=== PATIENT | male | born 1975 | race African-American/Black ===

== ENCOUNTER 2019-07-01 22:43 | Emergency (ER) | payer SELFPAY ==
[~2019-07-01] VITALS: Ht 170.2 cm; Wt 91.0 kg
[2019-07-01 22:43] VITALS: BP 124/81
--- NOTE | 2019-07-01 23:04 | PHYS DOC ---
Adult General Chief Complaint Chief Complaint: ANXIETY/PANIC ATTACK HPI HPI Patient is a 44-year-old -[place] male with history of anxiety currently off his Zoloft and residing at the [facility] who presents with feelings of dizziness described his head spinning and increased anxiety since running out of his Zoloft 2 days ago. Patient does report difficulty sleeping. States he attempted to get ahold of his medication provider 2 days ago but was unable to take contacted have prescriptions refilled. No chest pain palpitations, HI or SI reported. No other acute symptoms or complaints. [] Review of Systems Review of Systems Review symptoms as per history of present illness. All other systems were reviewed and found to be within normal limits, except as documented in this note. Allergies Allergies Allergies Coded Allergies Type Severity Reaction Last Updated Verified No Known Drug Allergies 07/01/19 No Physical Exam Physical Exam Constitutional: Well developed, well nourished, no acute distress, non-toxic appearance. [] HENT: Normocephalic, atraumatic, bilateral external ears normal, oropharynx moist, nose normal. [] Eyes: PERRLA, EOMI, conjunctiv injected e. [] Cardiovascular:Heart rate regular rhythm, no murmur [] Lungs & Thorax: Bilateral breath sounds clear to auscultation []] Neurologic: Alert and oriented, normal motor function, normal sensory function, no focal deficits noted. [] Psychologic: Affect anxious EKG EKG [] Radiology/Procedures Radiology/Procedures [] Course & Med Decision Making Course & Med Decision Making Pertinent Labs and Imaging studies reviewed. (See chart for details) [Patient does not have acute life-threatening condition or complaint. Vital signs are stable. Additional treatment offered but declined by patient. Recommends following up with his] Dragon Disclaimer Dragon Disclaimer This electronic medical record was generated, in whole or in part, using a voice recognition dictation system. Departure Departure: Impression: Primary Impression: Encounter for medical screening examination Disposition: HOME, SELF-CARE Condition: STABLE Patient Instructions: Medical Screening Exam Additional Instructions: A medical screening exmaination was performed. Please follow-up with your medication provider tomorrow for medication refills. JEREMY GARCIA DO Jul 01, 2019 23:03
== END 2019-07-01 23:05 | disposition home or self-care (01) ==
LOC: ER 22:43
DX: F41.9 Anxiety disorder, unspecified (principal); R42 Dizziness and giddiness
CPT/HCPCS: 99284